=== PATIENT | male | born 1990 | race African-American/Black ===

== ENCOUNTER 2022-02-18 22:48 | Emergency (ER) | payer SELFPAY ==
[2022-02-18] MEDS ORDERED: HYDROcodone/Acetaminophen 5/325 mg Tablet ONE (23:39)
[2022-02-18 23:40] LABS: #Lymphocytes 0.7 thou/uL (1.20-3.40); #Monocytes 0.9 thou/uL (0.11-0.59); #Neutrophils 11.1 thou/uL (1.40-6.50); %Basophils 0.1 % (0.0-1.0); %Eosinophils 0.2 % (0.0-10.0); %Lymphocytes 5.5 % (21.0-51.0); %Monocytes 6.7 % (0.0-10.0); %Neutrophils 87.5 % (42.0-75.0); Hemoglobin 14.1 g/dL (14.0-18.0); Mean Corpuscular Hemoglobin 30.6 pg (27.0-31.0); Mean Corpuscular Volume 89.9 fl (78.0-98.0); Mean Platelet Volume 9.2 fL (7.4-10.4); Platelet Count 134 10x3/uL (130-400); RBC Distribution Width 12.1 % (11.5-14.5); White Blood Cell (WBC) Count 12.6 10x3/uL (4.8-10.8)
[2022-02-19] LABS: ALT (SGPT) 17 U/L (8-55); AST (SGOT) 37 U/L (5-34); Albumin 4.3 g/dL (3.5-5.0); Alkaline Phosphatase 75 U/L (40-110); Anion Gap 14 mmol/L (10-20); BUN (Urea Nitrogen) 14 mg/dL (8.9-20.6); Bilirubin, Total 0.9 mg/dL (0.2-1.2); Calc. Creatinine Clearance 0 mL/min (70-130); Calcium 9.8 mg/dL (7.8-10.44); Carbon Dioxide 27 mmol/L (22-29); Chloride 100 mmol/L (98-107); Estimated GFR 91; Globulin 2.7 g/dL (2.4-3.5); Glucose 88 mg/dL (70-105); Potassium 3.8 mmol/L (3.5-5.1); Sodium 137 mmol/L (136-145)
[2022-02-19] MEDS ORDERED: cefTRIAXone\\ROCEPHIN 1 GM VIAL ONE (00:19)
[2022-02-19] MEDS ORDERED: Boostrix 0.5 ML (Tdap) VIAL (>/=7 yrs of age) ONE (00:19)
[2022-02-19] MEDS ORDERED: Lidocaine 1% MPF 2 ML VIAL ONE (00:21)
[2022-02-19] MEDS ORDERED: Lidocaine 1% PF 5 ML VIAL ONE (00:22)
== END 2022-02-19 00:47 | disposition home or self-care (01) ==
LOC: ERS 22:48
DX: M01.X Direct infection of joint in infectious and parasitic diseases classified elsewhere (principal); W22.09XA Striking against other stationary object, initial encounter; Z23 Encounter for immunization
CPT/HCPCS: 36415; 80053; 85025; 87070; 87205; 90471; 90715; 96372; J0696